=== PATIENT | male | born 1995 | race African-American/Black ===

== ENCOUNTER 2017-04-09 13:59 | Emergency (ER) | payer MEDICAID ==
[2017-04-09 14:25] VITALS: BP 126/68; PULSE 94; RESP 16; TEMP 99.6; O2SAT 96
--- NOTE | 2017-04-09 14:44 | PD ---
HPI Chief Complaint: Cold / Flu Symptoms Time Seen by Provider: 14:36 Travel History International Travel<30 days: No Contact w/Intl Traveler<30days: No Traveled to known affect area: No History of Present Illness HPI 21-year-old male presents to the emergency department for evaluation of flulike symptoms. Patient states he started with a cough mild cough yesterday. However , upon waking today he reports subjective fevers, increased coughing, congestion. He states that he also has a mild headache, 4/10, aching, without radiation. Patient states he vomited 2 from coughing today. He has no chronic medical problems and takes no prescribed medications. No shortness of breath or chest pain. No abdominal pain. No exacerbating or alleviating factors. Moderate severity. PFSH Social History Alcohol Use: No Tobacco Use: No Substance Use: No Allergies-Medications (Allergen,Severity, Reaction): Coded Allergies: No Known Allergies (Unverified , 04/09/17) Reported Meds & Prescriptions Reported Meds & Active Scripts Active No Active Prescriptions or Reported Medications Review of Systems Except as stated in HPI: all other systems reviewed are Neg Physical Exam Narrative GENERAL: Well-nourished, well-developed male patient, ambulatory. Afebrile. SKIN: Focused skin assessment warm/dry. HEAD: Normocephalic. Atraumatic. ENT: Mucosa pink and moist. No erythema or exudates. No uvular edema. No uvular , palatal, or tonsillar deviation. Airway patent. Nasal turbinates appear normal without nasal blood, purulent drainage or septal hematoma. Bilateral tympanic membranes are clear without erythema or perforation. EYES: No scleral icterus. No injection or drainage. NECK: Supple, trachea midline. No JVD or lymphadenopathy. CARDIOVASCULAR: Regular rate and rhythm without murmurs, gallops, or rubs. RESPIRATORY: Breath sounds equal bilaterally. No accessory muscle use. Lungs sounds are clear to auscultation. Dry cough noted. GASTROINTESTINAL: Abdomen soft, non-tender, nondistended. MUSCULOSKELETAL: No cyanosis, or edema. BACK: Nontender without obvious deformity. No CVA tenderness. Data Data Last Documented VS Vital Signs Date Time Temp Pulse Resp B/P (MAP) Pulse Ox O2 Delivery O2 Flow Rate FiO2 04/09/17 16:08 18 04/09/17 14:25 99.6 94 126/68 (87) 96 Orders Orders Influenzae A/B Antigen (04/09/17 14:41) Ondansetron Odt (Zofran Odt) (04/09/17 14:45) Ibuprofen (Motrin) (04/09/17 14:45) MDM Medical Decision Making Medical Screen Exam Complete: Yes Emergency Medical Condition: Yes Medical Record Reviewed: Yes Differential Diagnosis Influenza versus viral syndrome versus URI Narrative Course 21-year-old male presents to the emergency department for evaluation of flulike symptoms that started mildly yesterday, worsened today. Influenza swab is ordered and pending. Patient is given ibuprofen 600 mg by mouth, Zofran 4 mg ODT. Influenza is positive for flu a. Patient will be discharged with a prescription for Tamiflu, Zofran. He is encouraged to follow primary care physician. He is return here for any acute worsening of symptoms. Diagnosis Primary Impression: Influenza A Referrals: Primary Care Physician call for appointment Patient Instructions: General Instructions, Influenza (ED) Departure Forms: School Release, Return to School Date: Apr 12, 2017 Tests/Procedures Additional Instructions: [id number] Tylenol every 4 hours as needed for fever, bodyaches. Over-the -counter ibuprofen every 6-8 hours as needed for fever, bodyaches. Take Tamiflu as directed. Take Zofran as directed as needed for nausea/vomiting. Rest. Drink plenty of fluids. Follow-up with your primary care physician. Return to the emergency department for any acute worsening of symptoms. Med/Other Pt SpecificInfo: Prescription(s) given Scripts Oseltamivir (Tamiflu) 75 Mg Cap 75 MG PO BID for Mgmt Viral Infection for 5 Days, #10 CAP 0 Refills Prov: Raya Vale 04/09/17 Ondansetron Odt (Zofran Odt) 4 Mg Tab 4 MG SL Q6HR Y for Nausea/Vomiting, #16 TAB 0 Refills Prov: Raya Vale 04/09/17 Disposition: 01 DISCHARGE HOME Condition: Stable Raya Vale Apr 09, 2017 14:44
[2017-04-09] MEDS ORDERED: ONDANSETRON ODT 4 MG TAB PO ONE (14:45)
[2017-04-09] MEDS ORDERED: IBUPROFEN 600 MG TAB PO ONE (14:45)
[2017-04-09 16:08] VITALS: RESP 18
[2017-04-09] MEDS ORDERED: OSEL75 PO (16:40)
[2017-04-09] MEDS ORDERED: ZOFR4TAB3 SL (16:40)
== END 2017-04-09 16:57 | disposition home or self-care (01) ==
LOC: NEPK 13:59
DX: J10.1 Influenza due to other identified influenza virus with other respiratory manifestations (principal); R11.10 Vomiting, unspecified
CPT/HCPCS: 87804; 99283